=== PATIENT | female | born 1995 | race Two or more races ===

== ENCOUNTER 2017-01-20 10:27 | Emergency (ER) | payer OTHER ==
[2017-01-20 10:33] VITALS: TEMP 97.6; BMI 23.4
[2017-01-20] MEDS ORDERED: SODIUM CHLORIDE 1,000 ML IV ONE ×2 (10:53→12:04)
[2017-01-20] MEDS ORDERED: ONDANSETRON 4 MG/2 ML VIAL IVPB ONE (10:53)
--- NOTE | 2017-01-20 10:55 | PDOC ---
History of Present Illness - General History Source: Patient Exam Limitations: No Limitations - History of Present Illness Initial Comments: 01/20/17 10:59 The patient is an 20-year-old woman, with no past medical history who presents to the emergency department for further evaluation of persistent vomiting for the past 2 days. No fever, chills. She states that her symptoms started approximately 2 days ago, when she was at the gym and she worked out. After her workout, she felt nauseous. No vomiting, The next day, she woke up in the morning and vomited. She states that she is fine throughout the afternoon and she is able to eat small meals and keep it down. She also reports associated symptoms of nausea,sharp abdominal pain (on palpation) and soft stools and a mild cough. She was on a Depakote shot (last shot in September) and she was switched to an oral contraceptive approximately one month ago. She states that she recently got over her menses, last week. She is sexually active with one partner. She reports daily compliance with her oral contraceptive. No sick contacts. She denies headache, fever, chills, diaphoresis, generalized weakness. She denies chest pain, shortness of breath. She denies dysuria, hematuria, urinary frequency and urgency, flank pain, vaginal discharge/vaginal bleeding Allergies: No Known Drug Allergies Past Surgical History: None reported Social History: No tobacco, ETOH and recretional drug use. <Malini Crawford - Last Filed: 01/20/17 13:22> <Jayme Carey - Last Filed: 01/20/17 13:37> - General Chief Complaint: Nausea/Vomiting Stated Complaint: VOMITING, ABD PAIN Time Seen by Provider: 01/20/17 10:36 Past History <Malini Crawford - Last Filed: 01/20/17 13:22> - Past Medical History Other medical history: NONE - Psycho/Social/Smoking Cessation Hx Suicidal Ideation: No Smoking History: Never smoked Hx Alcohol Use: No Drug/Substance Use Hx: No <Jayme Carey - Last Filed: 01/20/17 13:37> - Past Medical History Allergies/Adverse Reactions: Allergies Allergy/AdvReac Type Severity Reaction Status Date / Time No Known Allergies Allergy Verified 01/20/17 10:41 Home Medications: Ambulatory Orders NK [No Known Home Medication] 01/20/17 Review of Systems - Review of Systems Able to Perform ROS?: Yes Comments:: 01/20/17 10:59 CONSTITUTIONAL: No reported: Fever, Chills, Diaphoresis, Generalized Weakness, Malaise, Loss of Appetite HEENT: No reported: Rhinorrhea, Nasal Congestion, Throat Pain, Throat Swelling, Difficulty Swallowing, Mouth Swelling, Ear Pain, Eye Pain, Visual Changes CARDIOVASCULAR: No reported: Chest Pain, Syncope, Palpitations, Irregular Heart Rate, Lightheadedness, Peripheral Edema RESPIRATORY: Reported: Cough. No reported: Shortness of Breath, SOB with Exertion, Orthopnea , Wheezing, Stridor, Hemoptysis GASTROINTESTINAL: Reported: Abdominal Pain. Nausea. Vomiting. Diarrhea. No reported: Abdominal Distension Constipation, Melena, Hematochezia GENITOURINARY: No reported: Dysuria, Frequency, Urgency, Hesitancy, Flank Pain, Genital Pain MUSCULOSKELETAL: No reported: Myalgia, Arthralgia, Joint Swelling, Neck Pain SKIN: No reported: Rash, Itching, Pallor HEMEATOLOGIC/IMMUNOLOGIC: No reported: Easy Bleeding, Easy Bruising, Lymphadenopathy, Frequent infections ENDOCRINE: No reported: Unexplained Weight Gain, Unexplained Weight Loss, Heat Intolerance , Cold Intolerance NEUROLOGIC: No reported: Headache, Focal Weakness, Paresthesias, Vertigo, Lightheadedness, Unsteady Gait, Seizure, Mental Status Changes, Incontinence PSYCHIATRIC: No reported: Anxiety, Depression <Malini Crawford - Last Filed: 01/20/17 13:22> *Physical Exam - Vital Signs Last Vital Signs Temp Pulse Resp BP Pulse Ox 97.6 F 87 20 114/73 98 01/20/17 10:30 01/20/17 10:30 01/20/17 10:30 01/20/17 10:30 01/20/17 10:30 - Physical Exam Comments: 01/20/17 10:59 GENERAL: The patient is awake, alert, and fully oriented, Nontoxic - in no acute distress. HEAD: Normocephalic, atraumatic. EYES: extraocular movements intact, sclera anicteric, conjunctiva clear. ENT: Normal voice, Moist mucous membranes. NECK: Normal range of motion, supple LUNGS: Breath sounds equal, clear to auscultation bilaterally. No wheezes, no rhonchi, no rales. HEART: Regular rate and rhythm, without murmur, rub or gallop. ABDOMEN: Soft, there is minimal suprapubic tenderness to palpation, normoactive bowel sounds. No guarding, no rebound.No CVA tenderness. No tenderness over McBurney's point. Negative Whaley's sign. EXTREMITIES: Normal range of motion, no edema. No clubbing or cyanosis. No cords , erythema, or tenderness. NEUROLOGICAL: No facial assymetry, Normal speech, PSYCH: Normal mood, normal affect. SKIN: Warm, Dry, normal turgor <Malini Crawford - Last Filed: 01/20/17 13:22> - Vital Signs Last Vital Signs Temp Pulse Resp BP Pulse Ox 97.6 F 87 20 114/73 98 01/20/17 10:30 01/20/17 10:30 01/20/17 10:30 01/20/17 10:30 01/20/17 10:30 <Jayme Carey - Last Filed: 01/20/17 13:37> ED Treatment Course - LABORATORY CBC & Chemistry Diagram: 01/20/17 10:55 01/20/17 10:55 - RADIOLOGY Radiograph Interpretation: 01/20/17 13:19 EXAM: RAD/CHEST PA LAT IMPRESSION: 2 views reveal clear lungs, normal mediastinum and sharp angles. The bones and soft tissues are intact. No acute pathology. No comparison studies. <Malini Crawford - Last Filed: 01/20/17 13:22> - LABORATORY CBC & Chemistry Diagram: 01/20/17 10:55 01/20/17 10:55 <Jayme Carey - Last Filed: 01/20/17 13:37> Medical Decision Making - Medical Decision Making 01/20/17 10:53 21y F no pmhx presents with morning nausea, epigastric tenderness (only with palpation) w/o fever/chills, pt currently sexually active and states she uses OCPs, lmp about 1 month ago. will ck labs, wlil give zofran, fluids will r/o , uti will reasses 01/20/17 13:23 pts labs reivewed ua conscentrated shows possible dehydration cxr negative pt feeling soignificantly improved abd is soft nontender tolerated oral intake will d/c the pt with pmd fu return precautions were discussed I discussed the physical exam findings, ancillary test results and final diagnoses with the patient. I answered all of the patient's questions. The patient was satisfied with the care received and felt comfortable with the discharge plan and treatment plan. The patient will call their primary care physician within 24 hours to arrange follow-up and will return to the Emergency Department with any new, persistent or worsening symptoms. <Jayme Carey - Last Filed: 01/20/17 13:37> *DC/Admit/Observation/Transfer - Attestations Scribe Attestion: 01/20/17 11:00 Documentation prepared by Malini Crawford, acting as medical clinic manager for Jayme Carey MD. <Malini Crawford - Last Filed: 01/20/17 13:22> - Discharge Dispostion Admit: No <Jayme Carey - Last Filed: 01/20/17 13:37> Diagnosis at time of Disposition: Dehydration Abdominal pain Qualifiers: Abdominal location: lower abdomen, unspecified Qualified Code(s): R10.30 - Lower abdominal pain, unspecified - Discharge Dispostion Disposition: HOME Condition at time of disposition: Improved - Referrals Referrals: [facility] [Provider Group] - Patient Instructions Printed Discharge Instructions: DI for Abdominal Pain-Adult Additional Instructions: Return to the emergency department immediately with ANY new, persistent or worsening symptoms including worsening abdominal pain, fevers, inability to tolerate oral intake, chest pain, shortness of breath or any other concerns. Stay well hydrated. You MUST call and follow up with your doctor tomorrow. Your emergency department visit is not complete without a followup with your doctor for reevaluation. Please make sure your doctor reviews the results of your emergency evaluation. Print Language: WOLOF
[2017-01-20] MEDS ORDERED: ONDANSETRON 4 MG/2 ML VIAL ONE (10:59)
[2017-01-20 11:20] LABS: BASOPHIL 0.6 % (0-2.0); EOSINOPHIL 0.3 % (0-4.5); MCH 32.3 pg (25.7-33.7); MCHC 34.3 g/dl (32.0-36.0); MEAN CELL VOLUME 94.3 fl (80-96); MEAN PLT VOLUME 8.4 fl (7.5-11.1); NEUTROPHILS 70.9 % (42.8-82.8); PLATELET COUNT 197 K/MM3 (134-434); RDW 12.9 % (11.6-15.6); WHITE BLOOD COUNT 8.5 K/mm3 (4.0-10.0)
[2017-01-20 11:25] LABS: URINE APPEARANCE CLEAR; URINE BILIRUBIN NEGATIVE (NEGATIVE); URINE BLOOD 1+ (NEGATIVE); URINE COLOR DKYELLOW; URINE GLUCOSE (UA) NEGATIVE (NEGATIVE); URINE KETONE 1+ (NEGATIVE); URINE LEUK ESTERASE NEGATIVE (NEGATIVE); URINE NITRITE NEGATIVE (NEGATIVE); URINE PROTEIN 1+ (NEGATIVE); URINE UROBILINOGEN NEGATIVE E.U./dl (0.2-1.0)
[2017-01-20 11:27] LABS: URINE MUCUS MANY; URINE RBC 1 /hpf (0-3); URINE WBC 3 /hpf (3-5)
[2017-01-20 11:49] LABS: ALBUMIN 4.2 g/dl (3.4-5.0); ALK PHOS 63 U/L (45-117); ANION GAP 11 (8-16); BILIRUBIN,TOTAL 0.6 mg/dL (0.2-1.0); CALCIUM 9.3 mg/dL (8.5-10.1); CO2 25 mmol/L (21-32); CREATININE 0.7 mg/dL (0.55-1.02); GLUCOSE,RANDOM 88 mg/dL (74-106); SGOT/AST 130 U/L (15-37); SGPT/ALT 48 U/L (12-78); TOT PROT 6.8 g/dl (6.4-8.2)
[2017-01-20 13:54] VITALS: BP 120/55; PULSE 80
== END 2017-01-20 13:54 | disposition home or self-care (01) ==
LOC: JER 10:27
PROC: 3E0337Z Introduction of Electrolytic and Water Balance Substance into Peripheral Vein, Percutaneous Approach (ICD-10-PCS; principal; 2017-01-20)
PROC: 3E033GC Introduction of Other Therapeutic Substance into Peripheral Vein, Percutaneous Approach (ICD-10-PCS; 2017-01-20)
DX: E86.0 Dehydration (principal); R10.30 Lower abdominal pain, unspecified
CPT/HCPCS: 36415; 71020-TC; 80053; 81003; 81015; 83690; 84703; 85025; 99283-25